=== PATIENT | female | born 1990 ===

== ENCOUNTER 2017-01-12 11:59 | Emergency (ER) | payer SELFPAY ==
[2017-01-12] MEDS ORDERED: Amoxicillin/Clavulanate TAB* 875 MG PO ONE (12:22)
[2017-01-12] MEDS ORDERED: Tetan/Diph/Pertus SYR(Tdap)* 0.5 ML SYR(BOOSTRIX) use SYR IM ONE (12:23)
--- NOTE | 2017-01-12 12:25 | UC ---
Bite Injury/Animal HPI - HPI Summary HPI Summary: Dog bite to right hand yesterday-PW on Palm and right index finger DIP--which is painful and swollen - History of Current Complaint Chief Complaint: UCBiteInjury Stated Complaint: DOG BITE Time Seen by Provider: 01/12/17 12:16 Hx Obtained From: Patient Hx Last Menstrual Period: 01/02/17 ?: No Severity Currently: Moderate Severity Initially: Moderate Pain Intensity: 4 Pain Scale Used: 0-10 Numeric Onset/Duration: Sudden Onset, Lasting Days - 1, Still Present Type of Bite: Pet Has Animal Been Immunized?: Yes Character: Puncture Associated Signs And Symptoms: Positive: Swelling Hx of Bite: Unprovoked Animal Available for Observation: Yes Animal Control Notified: Yes - Allergies/Home Medications Allergies/Adverse Reactions: Allergies Allergy/AdvReac Type Severity Reaction Status Date / Time Peanut-containing Drug Allergy Hives/Diff. Verified 01/12/17 12:16 Products Breathing/I tching Home Medications: Home Medications Albuterol Hfa (PREPAK) 2 inh INH Q4HR PRN 01/12/17 [History Confirmed 01/12/17] Ibuprofen [Advil] 400 mg PO TID PRN 01/12/17 [History Confirmed 01/12/17] PMH/Surg Hx/FS Hx/Imm Hx Previously Healthy: Yes - Surgical History Surgical History: None - Family History Known Family History: Positive: None - Social History Occupation: Employed Full-time Lives: With Family Alcohol Use: Occasionally Substance Use Type: None Smoking Status (MU): Never Smoked Tobacco Review of Systems Constitutional: Negative Skin: Bruising - right index finger and palm Eyes: Negative ENT: Negative Respiratory: Negative Cardiovascular: Negative Gastrointestinal: Negative Genitourinary: Negative Motor: Decreased ROM - right index DIP Neurovascular: Negative Musculoskeletal: Negative, Myalgia Neurological: Negative Psychological: Negative All Other Systems Reviewed And Are Negative: Yes Physical Exam Triage Information Reviewed: Yes Appearance: Well-Appearing, No Pain Distress, Well-Nourished Vital Signs: Initial Vital Signs Temp 98.9 F 01/12/17 12:06 Pulse 100 01/12/17 12:06 Resp 18 01/12/17 12:06 BP 122/63 01/12/17 12:06 Pulse Ox 98 01/12/17 12:06 Vital Signs Reviewed: Yes Eye Exam: Normal Eyes: Positive: Conjunctiva Clear ENT Exam: Normal ENT: Positive: Normal ENT inspection, Hearing grossly normal, TMs normal. Negative: Nasal congestion, Nasal drainage, Tonsillar swelling, Tonsillar exudate, Trismus, Muffled/hoarse voice Dental Exam: Normal Neck exam: Normal Neck: Positive: Supple, Nontender Respiratory Exam: Normal Respiratory: Positive: Chest non-tender, Lungs clear, Normal breath sounds, No respiratory distress, No accessory muscle use Cardiovascular Exam: Normal Cardiovascular: Positive: RRR, No Murmur, Pulses Normal, Brisk Capillary Refill Musculoskeletal Exam: Other Musculoskeletal: Positive: Strength Limited @ - right index finger, ROM Limited @ - right index finger, Edema @ - right index finger Neurological Exam: Normal Neurological: Positive: Alert Psychological Exam: Normal Skin Exam: Other Skin: Positive: significant lesion(s) - palm of hand and DIP right index finger Diagnostics - Radiology No standard instances Xray Interpretation: No Acute Changes Radiology Interpretation Completed By: Radiologist Bite Injury Course/Dx - Course Course Of Treatment: Splint on index finger with dressing, up date Tetnus, Augmentin follow with hand surgeon 3-5 days - Differential Dx/Diagnosis Differential Diagnosis/HQI/PQRI: Cellulitis, Joint Space Infection, Puncture Provider Diagnoses: Dog Bite Right hand, Punture Wound, Discharge - Discharge Plan Condition: Stable Disposition: HOME Patient Education Materials: Warm Compress or Soak (ED), Animal Bite (ED), Amoxicillin/Clavulanate Potassium (By mouth), Diphtheria/Acellular Pertussis/ Tetanus Booster Vaccine (By injection) Referrals: Regina Dumas MD [Medical Doctor] - 3 Days
--- NOTE | 2017-01-12 12:56 | RAD ---
INDICATION: Puncture wound to RIGHT hand COMPARISON: None TECHNIQUE: AP, lateral, and oblique views were obtained. FINDINGS: There is no acute fracture or dislocation. There is mild soft tissue swelling over the dorsum of the hand. There is no foreign body. IMPRESSION: NO FRACTURE OR FOREIGN BODY
== END 2017-01-12 13:37 | disposition home or self-care (01) ==
LOC: UCEAST 11:59
DX: S61.451A Open bite of right hand, initial encounter (principal); W54.0XXA Bitten by dog, initial encounter; Z88.0 Allergy status to penicillin
CPT/HCPCS: 90471; 90715; 99203; A9270-GY; G0463